=== PATIENT | male | born 1955 | race Caucasian/White ===

== ENCOUNTER 2016-04-25 07:14 | Emergency (ER) | payer OTHER ==
[~2016-04-25] VITALS: Ht 175.3 cm; Wt 109.1 kg
[~2016-04-25 07:14] MED LIST: ALLERGY MED; LORTAB 5/500 501 TAB PO
[2016-04-25 07:15] VITALS: TEMP 97.5
[2016-04-25] MEDS ORDERED: FLEXERIL 1010 MG/TAB PO (07:20)
[2016-04-25] MEDS ORDERED: NAPROSYN500 MG PO (07:21)
[2016-04-25 08:31] LABS: BASO # 0.1 (0.0-0.2); BASO % 0.9 % (0.0-2.0); EOS # 0.6 (0.0-0.7); EOS % 10.2 % (0-4.0); GRAN # 2.9 (1.4-6.5); HEMATOCRIT 44.1 % (42.0-52.0); HEMOGLOBIN 15.1 g/dl (13.5-18.0); LYMPH # 1.5 (1.2-3.4); LYMPH % 27.8 % (20.0-51.0); MEAN CELL VOLUME 88 fl (80.0-100.0); MEAN CORPUSCULAR HEMOGLOBIN 30 pg (27.0-31.0); MEAN CORPUSCULAR HGB CONC 34 g/dl (33.0-37.0); MEAN PLATELET VOLUME 9.4 fl (7.4-10.4); MONO # 0.5 (0.1-0.6); MONO % 8.9 % (1.7-9.3); PLATELET COUNT 262 K/mm3 (130-400); RED BLOOD COUNT 5.01 M/mm3 (4.20-5.60); REDCELL DISTRIBUTION WIDTH-CV 12.8 % (11.5-14.5); WHITE BLOOD COUNT 5.5 K/mm3 (4.8-10.8)
[2016-04-25 08:42] LABS: ALBUMIN 4.4 gm/dL (3.5-5.0); BILIRUBIN,TOTAL 0.8 mg/dL (0.0-1.0); CALCIUM 9.3 mg/dL (8.4-10.2); CREATININE, serum 1.02 mg/dL (0.66-1.25); POTASSIUM 4.4 mmol/L (3.4-5.0); TOTAL PROTEIN 7.7 gm/dL (6.4-8.2)
[2016-04-25] MEDS ORDERED: TYLENOL W/COD1 UDTAB PO (08:58)
[2016-04-25] MEDS ORDERED: NORVASC 10MG10 MG PO (09:00)
[2016-04-25 09:13] VITALS: BP 136/115; PULSE 99
== END 2016-04-25 09:13 | disposition home or self-care (01) ==
LOC: COL.ER 07:14
PROVIDERS: Emergency Medicine
DX: M43.6 Torticollis (principal); I10 Essential (primary) hypertension; R20.0 Anesthesia of skin; M47.812 Spondylosis without myelopathy or radiculopathy, cervical region; N28.1 Cyst of kidney, acquired
CPT/HCPCS: J1885

== ENCOUNTER → 2016-05-09 | Outpatient (CLI) | payer OTHER ==
[~2016-05-09] MED LIST changes: +FLEXERIL 1010 MG/TAB PO; +NAPROSYN500 MG PO; +NORVASC 10MG10 MG PO; +TYLENOL W/COD1 UDTAB PO
== END ==
LOC: COL.RAD 07:06
DX: N28.89 Other specified disorders of kidney and ureter (principal); M54.89 Other dorsalgia; N40.0 Benign prostatic hyperplasia without lower urinary tract symptoms; R91.8 Other nonspecific abnormal finding of lung field; K44.9 Diaphragmatic hernia without obstruction or gangrene; K21.9 Gastro-esophageal reflux disease without esophagitis; K76.89 Other specified diseases of liver
CPT/HCPCS: Q9967

== ENCOUNTER 2016-07-13 16:45 | Outpatient (RCR) | payer OTHER | END 2016-07-24 13:04 | disposition home or self-care (01) | LOC: WSPT 16:45 | DX: M21.371 Foot drop, right foot (principal) ==